=== PATIENT | female | born 1950 | race Caucasian/White ===

== ENCOUNTER 2019-03-25 13:10 | Inpatient (IN) | payer MEDICARE ==
--- NOTE | 2019-03-12 12:50 | HP ---
HISTORY AND PHYSICAL: DATE OF SURGERY: 03/25/19 DATE OF OFFICE VISIT: 03/12/19 SURGEON: Kenia Moseley MD * (DICTATED BY LEONOR CALL) PROCEDURE: Left total hip arthroplasty. CHIEF COMPLAINT: Left hip pain. HISTORY OF PRESENT ILLNESS: Ms. Escobedo is a 68-year-old female with continued complaints of left hip pain. She failed conservative treatment and elected to proceed with a left total hip arthroplasty. PAST MEDICAL HISTORY: Denies. PAST SURGICAL HISTORY: Tonsillectomy, colonoscopy. CURRENT MEDICATIONS: None. ALLERGIES: To PENICILLIN. FAMILY HISTORY: Cancer, coronary artery disease and strokes. SOCIAL HISTORY: A 68-year-old female. She lives with her . She does not smoke or use drugs. Uses alcohol rarely. REVIEW OF SYSTEMS: A complete 14-point review of systems was reviewed with the patient, was all negative and noncontributory. PHYSICAL EXAMINATION GENERAL: She is well developed, well nourished, in no acute distress. VITAL SIGNS: She stands 65 inches tall, weighs 174 pounds, her blood pressure is 118/78, heart rate 71. HEENT: Normocephalic, atraumatic. NECK: Supple. No palpable lymph nodes. PULMONARY: The lungs are clear to auscultation bilaterally. CARDIO: Regular rate and rhythm. Strong S1, S2. ABDOMEN: Soft, nontender, nondistended. MUSCULOSKELETAL: Left lower lower extremity, the skin is intact. There are no open wounds or abrasions. She walks with a slightly antalgic type gait favoring her left hip. 0 to 70 degrees of hip flexion. She lacks 20 degrees from neutral, has 20 degrees of external rotation causing extreme groin pain. She is able to dorsiflex and plantar flex. She has a 2+ dorsalis pedis pulse and intact sensation. NEUROLOGICAL: She is alert and oriented x3. ASSESSMENT AND PLAN: Ms. Escobedo is a 68-year-old female with severe end-stage osteoarthritis of the left hip. She has failed conservative treatment and elected to proceed with a left total hip arthroplasty. The surgery is scheduled for 03/25/19. The risk and benefits were discussed with the patient at today's visit. All of her questions were answered. She will follow up with Dr. Moseley 2 weeks after the surgery. LEONOR CALL [phone]/[id number]/[facility] #: [id number] [facility]ITAL[facility]ady
[~2019-03-25 13:10] MED LIST: Acetaminophen TAB* 325 MG PO ONE; Buffered Lidocaine 1% SYRIN* 1 ML/SYRINGE INTRADERM ONE; Dexamethasone TAB* 4 MG PO ONE; DiMENhydriNATE IV* 50 MG/ML VIAL IV PUSH PRN; Famotidine IV* 10 MG/ML 2 ML (20 mg) IV ONE; Gabapentin CAP(*) 400 MG PO ONE; HYDROmorphone INJ1* 1 MG/ML SYRINGE IV PRN; Lactated Ringers 1000 ML Bag* 1,000 ML IV SCH; Naloxone* 0.4 MG/ML 1 ML VIAL IV PRN; Ondansetron ODT TAB* 4 MG PO ONE; PROCHLORPERAZINE INJ 5 MG/ML 2 ML VIAL IV PRN; Scopolamine 1.5 mg* PATCH TRANSDERM PRN; Tranexamic Acid 1,000 MG in NS 0.9% 50 ML* (outpatient use) IV SCH; celeCOXIB CAP* 100 MG PO ONE; fentaNYL* 50 MCG/ML 2 ML VIAL (100 MCG VIAL) IV PRN
--- OUTSIDE RECORDS SUMMARY | 2019-03-25 13:13 | XMS REPORT | Continuity of Care Document ---
:1950 External Reference #:[id number] Author Name Kenia Moseley M.D. 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 Problems Provider Date Pure hypercholesterolemia Anayeli Harley M.D., FACP Onset: 07/18/2011 Social History Type Date Description Comments Sex Unknown ETOH Use Occasionally consumes alcohol Tobacco Use Start: Unknown Patient has never smoked Smoking Status Reviewed: 02/05/19 Patient has never smoked Exercise Type/Frequency Does not exercise Allergies, Adverse Reactions, Alerts Active Allergies Reaction Severity Comments Date Penicillin Urticaria Moderate 07/18/2011 Medications Active Medications SIG Qnty Indications Ordering Provider Date Vit B, C, Multi Unknown Immunizations CPT Code Status Date Vaccine Lot # [id number] Given 02/13/2012 Hepatitis A Vaccine Adult Dosage [id number] Given 07/18/2011 Tdap - Tetanus/Diptheria/Acellular Pertussis [id number] Given 07/18/2011 Hepatitis A Vaccine Adult Dosage [id number] Vital Signs Date Vital Result Comment 02/05/2019 9:33am Height 65 inches 5'5" Weight 177.00 lb BP Systolic 138 mmHg BP Diastolic 80 mmHg Respiratory Rate 16 /min Body Temperature 97.8 F Pain Level 5 BMI (Body Mass Index) 29.5 kg/m2 02/13/2012 10:43am Height 65 inches 5'5" Weight 184.25 lb Heart Rate 62 /min BP Systolic Sitting 130 mmHg BP Diastolic Sitting 80 mmHg BMI (Body Mass Index) 30.7 kg/m2 Results Description No Information Available Procedures Date Code Description Status 01/19/2019 18439 Destruction ALL Benign Or Premalignant Lesion (Other Completed Than [place] 01/19/2019 76050 Repair Immediate Wound 2.6-7.5CM Completed Scalp/Axillae/Trunk/Extremities 01/19/2019 94096 Excise Benign lesion 1.1-2CM Trunk/Arm/Leg Completed 10/16/2018 85614 Destruction Of Benign Lesions Any Method 1-14 lesions Completed 10/16/2018 67097 Dest Lesion Each Addl Lesion 2 Through 14 Each Completed 10/16/2018 51507 Destruction ALL Benign Or Premalignant Lesion (Other Completed Than [place] 09/11/2009 [id number] Bone Mineral Density Test Completed 09/11/2009 11921787 Mammogram Completed Medical Devices Description No Information Available Encounters Type Date Location Provider Dx Diagnosis Office Visit 01/29/2019 [facility] Dermatology Reyna Shaffer L82.1 Other seborrheic 11:15a MD keratosis Z48.817 Encntr for surgical aftcr fol surgery on the skin, subcu Office Visit 10/16/2018 10:20a [facility] Dermatology Reyna Shaffer L72.8 Other follicular MD cysts of the skin and subcutaneous tissue D17.0 Adelfo lipomatous neoplm of skin, subcu of head, face and neck L85.3 Xerosis cutis L81.4 Other melanin hyperpigmentation D18.01 Hemangioma of skin and subcutaneous tissue L82.1 Other seborrheic keratosis B07.8 Other viral warts R20.8 Other disturbances of skin sensation L57.0 Actinic keratosis Assessments Date Code Description Provider 01/29/2019 L82.1 Other seborrheic keratosis Reyna Shaffer MD 01/29/2019 Z48.817 Encounter for surgical aftercare following Reyna Shaffer MD surgery on the skin and subcutaneous tissue 01/19/2019 L72.8 Other follicular cysts of the skin and Reyna Shaffer MD subcutaneous tissue 01/19/2019 L29.8 Other pruritus Reyna Shaffer MD 01/19/2019 L57.0 Actinic keratosis Reyna Shaffer MD 10/16/2018 L72.8 Other follicular cysts of the skin and Reyna Shaffer MD subcutaneous tissue 10/16/2018 D17.0 Benign lipomatous neoplasm of skin and Reyna Shaffer MD subcutaneous tissue o 10/16/2018 L85.3 Xerosis cutis Reyna Shaffer MD 10/16/2018 L81.4 Other melanin hyperpigmentation Reyna Shaffer MD 10/16/2018 D18.01 Hemangioma of skin and subcutaneous tissue Reyna Shaffer MD 10/16/2018 L82.1 Other seborrheic keratosis Reyna Shaffer MD 10/16/2018 B07.8 Other viral warts Reyna Shaffer MD 10/16/2018 R20.8 Other disturbances of skin sensation Reyna Shaffer MD 10/16/2018 L57.0 Actinic keratosis Reyna Shaffer MD Plan of Treatment No Information Available Functional Status Description No Information Available Mental Status Description No Information Available Referrals Description No Information Available
--- OUTSIDE RECORDS SUMMARY | 2019-03-25 13:13 | XMS REPORT | Continuity of Care Document ---
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 Problems Provider Date Pure hypercholesterolemia Anayeli Harley M.D., FACP Onset: 07/18/2011 Localized, primary osteoarthritis of the Kenia Beth Moseley Onset: 02/05/2019 pelvic region and thigh Social History Type Date Description Comments Sex [...] CPT Code Status Date Vaccine Lot # [id number] Given 02/13/2012 Hepatitis A Vaccine Adult Dosage [id number] 08959 Given 07/18/2011 Tdap - Tetanus/Diptheria/Acellular Pertussis [id number] 59088 Given 07/18/2011 Hepatitis A Vaccine Adult Dosage [id number] Vital Signs Date Vital Result Comment 03/12/2019 11:30am Height 65 inches 5'5" Weight 174.00 lb Heart Rate 71 /min BP Systolic 118 mmHg BP Diastolic 78 mmHg Body Temperature 97.6 F BMI (Body Mass Index) 29.0 kg/m2 02/05/2019 9:33am Height 65 inches 5'5" Weight 177.00 lb BP Systolic 138 mmHg BP Diastolic 80 mmHg Respiratory Rate 16 /min Body Temperature 97.8 F Pain Level 5 BMI (Body Mass Index) 29.5 kg/m2 Results Description No Information Available Procedures Date Code Description Status 01/19/2019 61111 Destruction ALL Benign Or Premalignant Lesion (Other Completed Than [place] 01/19/2019 19325 Repair Immediate Wound 2.6-7.5CM Completed Scalp/Axillae/Trunk/Extremities 01/19/2019 09163 Excise Benign lesion 1.1-2CM Trunk/Arm/Leg Completed 10/16/2018 35487 Destruction Of Benign Lesions Any Method 1-14 lesions Completed 10/16/2018 12813 Dest Lesion Each Addl Lesion 2 Through 14 Each Completed 10/16/2018 87412 Destruction ALL Benign Or Premalignant Lesion (Other Completed Than [place] 09/11/2009 018607560 Bone Mineral Density Test Completed 09/11/2009 94278042 Mammogram Completed Medical Devices Description No Information Available Encounters Type Date Location Provider Dx Diagnosis Office Visit 02/05/2019 [facility] Kenia Moseley M25.551 [facility] in left hip M16.12 Unilateral primary osteoarthritis, left hip M16.11 Unilateral primary osteoarthritis, right hip Office Visit 01/29/2019 11:15a [facility] Dermatology Reyna Shaffer, L82.1 Other seborrheic MD keratosis Z48.817 Encntr for surgical aftcr fol surgery on the skin, subcu Office Visit 10/16/2018 10:20a [facility] Dermatology Reyna Shaffer, L72.8 Other follicular MD cysts of the skin and subcutaneous tissue D17.0 Adelfo lipomatous neoplm of skin, subcu of head, face and neck L85.3 Xerosis cutis L81.4 Other melanin hyperpigmentation D18.01 Hemangioma of skin and subcutaneous tissue L82.1 Other seborrheic keratosis B07.8 Other viral warts R20.8 Other disturbances of skin sensation L57.0 Actinic keratosis Assessments Date Code Description Provider 03/12/2019 M25.552 Pain in left hip LEONOR Solitario 03/12/2019 M16.12 Unilateral primary osteoarthritis, left hip LEONOR Solitario 02/10/2019 M25.552 Pain in left hip Ervin Barbosa.D. 02/10/2019 M16.12 Unilateral primary osteoarthritis, left hip Kenia Danni MoseleyD. 02/05/2019 M25.551 Pain in right hip Kenia GaleasErvin toribio.D. 02/05/2019 M25.552 Pain in left hip Kenia Galeasmalu M.D. 02/05/2019 M16.12 Unilateral primary osteoarthritis, left hip Kenia Danni MoseleyD. 02/05/2019 M16.11 Unilateral primary osteoarthritis, right hip Kenia Ervin Moseley.D. 02/03/2019 M25.552 Pain in left hip Kenia Galeasmalu M.D. 02/03/2019 M16.12 Unilateral primary osteoarthritis, left hip Kenia Danni MoseleyD. 01/29/2019 L82.1 Other seborrheic keratosis Reyna Shaffer [...] keratosis Reyna Shaffer MD Plan of Treatment Future Appointment(s):04/09/2019 3:15 pm - Kenia Moseley M.D. at [facility] at Mwogiu9703/25/2019 2:00 pm - Ross Owens PA-C at [facility] at Wwenkv4803/25/2019 2:00 pm - LEONOR Solitario at [facility] at Zudxvr5803/25/2019 2:00 pm - Kenia Moseley M.D. at [facility] at Ojssrv5603/12/2019 - Kimmy Castaneda [facility]25.552 Pain in left hipFollow up:Follow up: 2 weeks after kxvkuzqZ78.12 Unilateral primary osteoarthritis, left hip Functional Status Description No Information Available Mental Status Description No Information Available Referrals Description No Information Available
[2019-03-25] MEDS ORDERED: KETAMINE HCL* 50 MG/ML 10 ML VIAL ONE (13:17)
[2019-03-25] MEDS ORDERED: fentaNYL* 50 MCG/ML 2 ML VIAL (100 MCG VIAL) ONE (13:17)
[2019-03-25] MEDS ORDERED: Midazolam* 1 MG/ML 5 ML VIAL (5 MG) ONE (13:17)
[2019-03-25] MEDS ORDERED: celeCOXIB CAP* 100 MG ONE (13:33)
[2019-03-25] MEDS ORDERED: Acetaminophen TAB* 325 MG ONE (13:34)
[2019-03-25] MEDS ORDERED: Clindamycin 900 MG/D5W BAG(*) 900 MG/50 ML BAG IVPB ONE (13:34)
[2019-03-25] MEDS ORDERED: Gabapentin CAP(*) 400 MG PO ONE (13:34)
[2019-03-25] MEDS ORDERED: Ondansetron ODT TAB* 4 MG ONE (13:34)
[2019-03-25] MEDS ORDERED: Dexamethasone TAB* 4 MG ONE (13:34)
[2019-03-25] MEDS ORDERED: Famotidine IV* 10 MG/ML 2 ML (20 mg) ONE (13:35)
[2019-03-25] MEDS ORDERED: Buffered Lidocaine 1% SYRIN* 1 ML/SYRINGE INTRADERM ONE (13:35)
[2019-03-25] MEDS ORDERED: Cyclobenzaprine TAB* 10 MG PO PRN (16:51)
[2019-03-25] MEDS ORDERED: oxyCODONE/Acetamin 5/325 MG* TAB PO PRN (16:51)
[2019-03-25] MEDS ORDERED: diPHENhydraMINE PO* 25 MG PO PRN (16:51)
[2019-03-25] MEDS ORDERED: Ondansetron INJ* 2 MG/ML VIAL IV PRN (16:51)
[2019-03-25] MEDS ORDERED: oxyCODONE TAB* 5 MG TAB PO PRN (16:51)
[2019-03-25] MEDS ORDERED: Ondansetron ODT TAB* 4 MG PO PRN (16:51)
[2019-03-25] MEDS ORDERED: Morphine INJ* 2 MG/ML 1 ML SYRINGE (TWO MG - NEW SYRINGE VERSION) IV PRN (16:51)
[2019-03-25] MEDS ORDERED: Magnesium Hydroxide LIQ* 30 ML UDC PO PRN (16:51)
[2019-03-25] MEDS ORDERED: diPHENhydraMINE IV* 50 MG/ML 1 ml VIAL (BENADRYL) IV PRN (16:51)
[2019-03-25] MEDS ORDERED: Lidocaine 2% PF * 5 ML VIAL ONE (16:53)
[2019-03-25] MEDS ORDERED: Propofol* 500 MG/50 ML BTL ONE (16:53)
[2019-03-25] MEDS ORDERED: Bupivacaine 0.5% SDV PF* 30ML VIAL ONE (16:53)
--- NOTE | 2019-03-25 16:55 | OP ---
Operative Report - Blank - Operative Report Date of Operation: 03/25/19 Note: JACOBY ESPANA 1950 Date Of Surgery: 03/25/19 Kenia Moseley MD Concession Attendant: Porsche GALVEZ did help throughout the procedure with preparation of the hip, wound retraction, manipulation of the hip, and wound closure. Anesthesiologist: Joy Lowry MD Anesthesia Type: Spinal Preoperative Diagnosis: Left severe degenerative osteoarthritis of the hip Postoperative Diagnosis: As above Procedure Performed: Left Total Hip Arthroplasty Complications: None Specimen: Femoral head and acetabular reamings sent to pathology. Hardware used: This is uncemented [place] total hip arthroplasty hardware for the femur a size 4 accolade II with 127 neck angle femoral component, for the acetabulum a size 48D trident II tritanium cluster hole shell, one 15mm screw, for the insert a size 32D trident X3 polyethylene insert, and for the femoral head a size 32 -4 ceramic biolox V40 femoral head. Brief history/Indication: JACOBY ESPANA was known in clinic and had a history of severe left hip pain. She failed conservative treatment with anti- inflammatories, pain pills, intra-articular injections and physical therapy. She elected to undergo left total hip arthroplasty due to continued pain and decreased quality of life. Radiographs showed severe end stage osteoarthritis of the hip with bone on bone contact. Informed consent was obtained from the patient. She understood the risks of surgery included but were not limited to: bleeding, infection, damage to nearby structures, intraoperative fracture, nerve palsy, failure of the hardware, early loosening, stiffness or loss of motion, dislocation, leg length discrepancy, anesthesia complications, stroke, heart attack, blood clot and . She wished to proceed. Intra-Operative findings: Intraoperatively the patient was noted to have severe loss of cartilage of the acetabulum and femoral head. Description of the Procedure: JACOBY ESPANA was identified in the preanesthesia unit. Her left hip was marked as the correct operative side. Informed consent was signed and placed in the chart. The patient was taken to the operating room and placed under anesthesia without complication. A petersen catheter was placed. The patient was placed on the peg board with all bony prominences well padded. The left lower extremity was prepped and draped in the usual sterile fashion. Preoperative time-out was made to correctly identify the patient, side and site. Appropriate intraoperative antibiotics were given within one hour of incision. A standard posterior incision was made and carried sharply down to the lateral fascia. A new 10 blade was used to make an incision in the fascia in line with the skin incision. A charnley retractor was placed. The piriformis and conjoined tendons were identified and elevated off the posterolateral femur using electrocautery. These were tagged with number 5 Ethibond. Next electrocautery was used to make a posterolateral capsular flap and this was tagged with number 5 Ethibonds. The hip was carefully dislocated. Lesser trochanter to the center of the femoral head was measured at 60 mm. The oscillating saw was used to make the femoral neck cut. The femoral head was carefully removed. The femur was retracted anteriorly and the acetabular retractors were placed. Long-handled knife was used to sharply remove any remaining labrum from the acetabular rim. The acetabulum was sequentially reamed up to a size 48. A bleeding subchondral bone bed was obtained. A trial liner was placed and had excellent fit and stability. A 48D cup with one 15 mm screw was placed and had excellent stability with appropriate anteversion and abduction angle. A size 32D polyethylene liner was impacted into the acetabular shell. The liner was checked for stability and was stable. Next attention was turned to preparation of the femoral canal. A canal finder was used to enter the proximal femur. The femoral canal was sequentially broached up to a size 4 femoral broach trial. A trial neck and 32 - 4 trial femoral head was chosen. Lesser trochanter to center of the femoral head measurement was satisfactory. The hip was reduced and taken through a range of motion. The hip was stable in all positions with good soft tissue tension and appropriate leg lengths. The hip was dislocated and all trials were removed. The final implant chosen was a accolade II size 4 with 127 neck angle. This stem was impacted into the femoral canal without difficulty. The stem was stable with appropriate anteversion. The femoral head chosen was a 32 - 4 ceramic head. The head was impacted onto the femoral neck without difficulty. The final lesser trochanter to center of the femoral head measurement was satisfactory. The hip was reduced and taken through a range of motion. The hip was stable in all positions with good soft tissue tension and appropriate leg lengths. The hip was copiously irrigated with sterile saline. The previously tagged capsule and tendons were repaired to the posterolateral femur through two trochanteric drill holes. The lateral fascia layer was closed using number 1 vicryls. The rest of the incision was closed in a layered fashion using 0 and 2-0 vicryls. The skin was closed using 3-0 monocryl suture and Dermabond. Sterile adaptic, 4x4s and paper tape was used to cover the incision. The patients anesthesia was reversed without difficulty. She was taken to the PACU in stable condition. Intended weight-bearing will be as tolerated with posterior hip precautions.
[2019-03-25] MEDS ORDERED: Lactated Ringers 1000 ML Bag* 1,000 ML IV SCH (17:00)
[2019-03-25] MEDS: Magnesium Hydroxide LIQ* 30 ML UDC PO SCH (21:11)
[2019-03-25] MEDS: Docusate CAP* 100 MG PO SCH (21:11)
[2019-03-25] MEDS: oxyCODONE/Acetamin 5/325 MG* TAB PO PRN (21:12)
[2019-03-25] MEDS: Acetaminophen TAB* 325 MG PO SCH (21:27)
[2019-03-25] MEDS: Clindamycin 600 MG/D5W BAG(*) 600 MG/50 ML BAG IV SCH (23:09)
[2019-03-26] MEDS: Acetaminophen TAB* 325 MG PO SCH ×2 (04:15→15:01)
[2019-03-26] MEDS: oxyCODONE/Acetamin 5/325 MG* TAB PO PRN (05:28)
[2019-03-26 05:43] LABS: Hematocrit 36 % (35-47); Hemoglobin 11.6 g/dL (12.0-16.0); Mean Platelet Volume 7.7 fL (7.4-10.4); Platelet Count 203 10^3/uL (150-450)
[2019-03-26 06:02] LABS: BUN/Creatinine Ratio 18.3 (8-20); Calcium 8.9 mg/dL (8.6-10.3); EGFR African American 99.4 (>60); EGFR Non-African American 82.1 (>60); Potassium 4.1 mmol/L (3.5-5.0)
[2019-03-26] MEDS: Docusate CAP* 100 MG PO SCH (07:59)
[2019-03-26] MEDS: Clindamycin 600 MG/D5W BAG(*) 600 MG/50 ML BAG IV SCH ×2 (08:01→16:01)
[2019-03-26] MEDS: Magnesium Hydroxide LIQ* 30 ML UDC PO SCH (08:01)
[2019-03-26] MEDS ORDERED: traMADol TAB* 50 MG PO PRN (08:33)
[2019-03-26] MEDS ORDERED: Vitamin THERAPEUTIC TAB PO SCH (09:00)
[2019-03-26] MEDS ORDERED: VITAMIN E PO SCH (09:00)
[2019-03-26] MEDS ORDERED: Vitamin B Complex TAB PO SCH (09:00)
[2019-03-26] MEDS ORDERED: Apixaban* 2.5 MG TAB PO SCH (09:00)
[2019-03-26] MEDS ORDERED: Rivaroxaban TAB(*) 10 MG PO SCH (09:00)
[2019-03-26] MEDS ORDERED: UBIDECARENONE PO SCH (09:00)
[2019-03-26] MEDS ORDERED: Cholecalciferol TAB* 1000 UNITS PO SCH (09:00)
[2019-03-26] MEDS ORDERED: [UNRECOGNIZED DRUG - OTHER] PO SCH (09:00)
--- NOTE | 2019-03-26 11:55 | DS ---
Orthopedic Discharge Summary - Discharge Summary Date of Admission:03/25/19 Date of Discharge: 03/26/2019 Date of Surgery: 03/25/2019 Attending Orthopedic Provider: Dr. Moseley Pre-operative Diagnosis: Left hip osteoarthritis Operative Procedure: Left total hip arthroplasty Disposition of Patient: HOME Condition of Patient: good History: JACOBY Rausch CASE is a 68 year old F with years of increasingly severe left hip pain. Patient has failed conservative management and has elected to undergo a left total hip replacement Hospital Course: JACOBY was admitted to [facility] on 03/25/19. Patient underwent a left total hip replacement without complication followed by a brief recovery in PACU and transfer to the Short Stay Surgical Unit in stable condition. Our hospitalist service, physical therapy and occupational therapy also participated in this patients care. Post-op day 1: patient was alert and in no acute distress. Dressing was clean, dry and intact. Operative extremity dorsiflexion and plantarflexion intact, sensation intact to light touch distally , DP2+. Dressing was changed, incision was clean, dry and intact. Patient was deemed to be medically and orthopedically stable for discharge. Physical therapy goals were met. Home Medications Medication Instructions Recorded Confirmed Type Ibuprofen TAB* [Advil TAB*] 200 mg PO Q6H PRN 01/14/19 03/25/19 History Cholecalciferol TAB* [Vitamin D 2,000 - 3,000 unit PO QAM 03/12/19 03/25/19 History TAB*] Ubidecarenone/Baldwin-3/Vit E [Co 1 cap PO QAM 03/12/19 03/25/19 History Q-10-Vit E-Fish Oil Sfgl] Vitamin B Complex CAP* [B Complex 1 cap PO QAM 03/12/19 03/25/19 History CAP*] Discharge Instructions following Orthopedic Surgery: Activity: * Weight Bearing as tolerated * Continue physical therapy and occupational therapy exercises as shown Hip replacements: Continue Hip Precautions- do not cross legs or bend greater than 90 degrees/squat Wound care: * OK to shower on post-op day 3, no bathing, swimming, or submerging wound. * Use gentle soap, pat dry. Cover with gauze, CHITO wrap or tape. * Visiting home nurse to do wound checks. Call Orthopedic office for: * Increased drainage * Redness * Increased pain * Fever Go to ER with shortness of breath or chest pain. Diet: * Regular diet * Increase fluids and fiber to prevent constipation. * Continue to use stool softeners, call office if no bowel motion within 48 hours. Medications See Home Medication List in your packet for medications that you should take after discharge. DVT Prophylaxis: Xarelto Dosin mg daily x 30 days Pain Control: Percocet Dosin/325 mg 1-2 tabs by mouth every 4-6 hours as needed for pain. Maximum of 10 tabs per day. Please note that Percocet contains Tylenol (acetaminophen). Maximum daily dose of Tylenol is 4000 mg from all sources. Antibiotics are required prior to any dental work. FOLLOW UP: Follow up with Dr. QUIROZ] Within 10-14 days, call for appointment Please call our office with any questions or concerns ([phone])
[2019-03-26 16:09] VITALS: BP 122/66
[2019-03-27] MEDS ORDERED: Bisacodyl SUPP* 10 MG SUPP PR PRN (16:51)
[2019-03-28] MEDS ORDERED: Scopolamine PATCH Remove* 1 NOTE MISC PATCH OFF ONE (06:09)
== END 2019-03-26 19:10 | disposition home health service (06) | DRG 470 ==
LOC: AA 13:10 → SSU 18:36
PROVIDERS: ADMIT Orthopaedic Surgery Adult Reconstructive Orthopaedic Surgery; ATTEND Orthopaedic Surgery Adult Reconstructive Orthopaedic Surgery
PROC: 0SRB04A Replacement of Left Hip Joint with Ceramic on Polyethylene Synthetic Substitute, Uncemented, Open Approach (ICD-10-PCS; principal; 2019-03-25 15:45)
DX: M16.12 Unilateral primary osteoarthritis, left hip (principal); Z88.0 Allergy status to penicillin; Z80.9 Family history of malignant neoplasm, unspecified; Z82.49 Family history of ischemic heart disease and other diseases of the circulatory system; Z82.3 Family history of stroke
CPT/HCPCS: 36415; 72170; 80048; 85014; 85018; 85049; 88304; 88311; A9270-GY; C1713; C1776; G8978-GP-CJ; G8979-GP-CI; G8987-GO-CJ; G8988-GO-CJ; G8989-GO-CJ; J2250; J2704; J3010; J3490; J8540

== ENCOUNTER 2023-06-12 11:45 | Observation (INO) ==
[~2023-06-12 11:45] MED LIST changes: -Acetaminophen TAB* 325 MG PO ONE; +Buffered Lidocaine 1% SYRIN 1 ml INTRADERM ONE; -Buffered Lidocaine 1% SYRIN* 1 ML/SYRINGE INTRADERM ONE; -Dexamethasone TAB* 4 MG PO ONE; -DiMENhydriNATE IV* 50 MG/ML VIAL IV PUSH PRN; +Famotidine IV 10 MG/ML 2 ml VIAL (20 mg) IV ONE; -Famotidine IV* 10 MG/ML 2 ML (20 mg) IV ONE; -Gabapentin CAP(*) 400 MG PO ONE; -HYDROmorphone INJ1* 1 MG/ML SYRINGE IV PRN; -Lactated Ringers 1000 ML Bag* 1,000 ML IV SCH; +Lactated Ringers 1000 ml BAG 1,000 ML IV SCH; -Naloxone* 0.4 MG/ML 1 ML VIAL IV PRN; -Ondansetron ODT TAB* 4 MG PO ONE; -PROCHLORPERAZINE INJ 5 MG/ML 2 ML VIAL IV PRN; -Scopolamine 1.5 mg* PATCH TRANSDERM PRN; -Tranexamic Acid 1,000 MG in NS 0.9% 50 ML* (outpatient use) IV SCH; -celeCOXIB CAP* 100 MG PO ONE; -fentaNYL* 50 MCG/ML 2 ML VIAL (100 MCG VIAL) IV PRN
[2023-06-12] MEDS ORDERED: fentaNYL 100 mcg/2 ml 50 MCG/ML VIAL ONE (12:29)
[2023-06-12] MEDS ORDERED: Midazolam 2 mg/2 ml VIAL 1 mg/ml 2 ml VIAL (2 mg) ONE ×2 (12:29→14:40)
[2023-06-12] MEDS ORDERED: Propofol 10 MG/ML 20 ML BTL ONE (12:30)
[2023-06-12] MEDS ORDERED: ceFAZolin 2 GM PREMIX 2 GM/50 ML BAG ONE (13:28)
[2023-06-12] MEDS ORDERED: Famotidine IV 10 MG/ML 2 ml VIAL (20 mg) ONE (13:28)
[2023-06-12] MEDS ORDERED: fentaNYL 100 mcg/2 ml 50 MCG/ML VIAL IV PRN (13:51)
[2023-06-12] MEDS ORDERED: Ondansetron 4 mg VIAL 2 MG/ML 2 ml VIAL IV PRN ×2 (13:51→16:31)
[2023-06-12] MEDS ORDERED: Naloxone 0.4 mg VIAL 0.4 mg/ml 1 ml VIAL IV PRN (13:51)
[2023-06-12 14:21] LABS: Rapid COVID-19 Molecular Undetected (Undetected)
[2023-06-12] MEDS ORDERED: ROPIVACAINE 5 MG/ML 30 ML BTL (0.5%) ONE (15:20)
[2023-06-12] MEDS ORDERED: Tranexamic Acid 1,000 MG/10 ML SDV ONE (15:55)
[2023-06-12] MEDS ORDERED: Phenylephrine IV 10 MG/ML 1 ml VIAL ONE (16:20)
[2023-06-12] MEDS ORDERED: Dexamethasone IV 4 MG/ML VIAL 1 ml VIAL ONE (16:20)
[2023-06-12] MEDS ORDERED: Ondansetron 4 mg VIAL 2 MG/ML 2 ml VIAL ONE (16:20)
[2023-06-12] MEDS ORDERED: Lactulose 30 ml UDC PO PRN (16:31)
[2023-06-12] MEDS ORDERED: Morphine 2 MG/ML SYRINGE IV PRN (16:31)
[2023-06-12] MEDS ORDERED: Ondansetron ODT 4 mg TAB 4 MG TAB PO PRN (16:31)
[2023-06-12] MEDS ORDERED: Magnesium Hydroxide LIQ 30 ML UDC PO PRN (16:31)
[2023-06-12] MEDS: Lactated Ringers 1000 ml BAG 1,000 ML IV SCH (20:24)
[2023-06-12] MEDS: Magnesium Hydroxide LIQ 30 ML UDC PO SCH (20:53)
[2023-06-12] MEDS ORDERED: Cholecalciferol (VIT D3) 1,000 unit TAB PO SCH (21:00)
[2023-06-12] MEDS: ceFAZolin 1 GM ADVAN 1 GM in NS 0.9% 50 ML 50 ML IVPB SCH (22:01)
[2023-06-13] MEDS: ceFAZolin 1 GM ADVAN 1 GM in NS 0.9% 50 ML 50 ML IVPB SCH ×2 (06:00→14:32)
[2023-06-13 06:01] LABS: Platelet Count 205 10^3/uL (150-450)
[2023-06-13] MEDS: Lactated Ringers 1000 ml BAG 1,000 ML IV SCH (06:14)
[2023-06-13 06:22] LABS: Hematocrit 35.3 % (35-45); Hemoglobin 11.5 g/dL (11.5-14.3); Mean Platelet Volume 8.5 fL (7.5-11.2)
[2023-06-13 06:24] LABS: Calcium 8.1 mg/dL (8.6-10.3); Creatinine, Serum 0.82 mg/dL (0.51-0.95); Potassium 4.2 mmol/L (3.5-5.0); eGFR CKD-EPI 76.4 (>60)
[2023-06-13] MEDS ORDERED: Vitamin THERAPEUTIC TAB PO SCH (09:00)
[2023-06-13] MEDS: Magnesium Hydroxide LIQ 30 ML UDC PO SCH (09:46)
[2023-06-13 14:16] VITALS: BP 127/66
== END 2023-06-13 15:18 | disposition home or self-care (01) ==
LOC: INTOOBSV 11:45 → AA 11:45 → SSU 18:22
PROVIDERS: ADMIT Orthopaedic Surgery Adult Reconstructive Orthopaedic Surgery; ATTEND Orthopaedic Surgery Adult Reconstructive Orthopaedic Surgery